=== PATIENT | female | born 1965 | race Caucasian/White ===

== ENCOUNTER 2018-01-16 06:02 | Day surgery (SDC) | payer OTHER ==
[2018-01-10 13:54] VITALS: BMI 26.4
[2018-01-16] MEDS ORDERED: oxyCODONE HCL 10 MG SUSTAINED ACTING TABLET PO ONE (07:26)
[2018-01-16] MEDS ORDERED: MIDAZOLAM HCL 2 MG/2 ML SINGLE DOSE VIAL ONE ×2 (07:31→10:02)
[2018-01-16] MEDS ORDERED: BUPIVACAINE HCL/PF (5 MG/ML) 30 ML VIAL IJ ONE (07:31)
[2018-01-16] MEDS ORDERED: DEXAMETHASONE SOD PHOSPHATE/PF 10 MG/ML SDV ONE (07:31)
[2018-01-16] MEDS ORDERED: DEXAMETHASONE SOD PHOSPHATE 4 MG/1 ML VIAL ONE (07:36)
[2018-01-16] MEDS ORDERED: KETOROLAC TROMETHAMINE 30 MG/1 ML VIAL ONE (07:36)
[2018-01-16] MEDS ORDERED: ONDANSETRON 4 MG/2 ML VIAL ONE (07:36)
[2018-01-16] MEDS ORDERED: ceFAZolin SODIUM 1 GM VIAL ONE (07:36)
[2018-01-16] MEDS ORDERED: BUPIVACAINE HCL/PF 0.5% (5MG/ML) 10 ML VIAL ONE (07:37)
[2018-01-16] MEDS ORDERED: THROMBIN (BOVINE) 5,000 UNIT VIAL TP ONE ×2 (07:38→09:14)
[2018-01-16] MEDS ORDERED: LIDOCAINE 1%/EPI 1:100000 (20 ML MULTI DOSE VIAL) ONE ×2 (07:39→10:17)
[2018-01-16] MEDS ORDERED: methylPREDNISolone ACET (DEPO) 40 MG/1 ML VIAL ONE (07:54)
--- NOTE | 2018-01-16 08:20 | HP ---
History & Physical Update - History History: No Change - Physical Physical: No Change - Assessment Assessment: No Change - Plan Plan: No Change
[2018-01-16] MEDS ORDERED: oxyCODONE HCL 10 MG SUSTAINED ACTING TABLET ONE (08:35)
[2018-01-16] MEDS ORDERED: LIDOCAINE 1%/EPI 1:100000 (20 ML MULTI DOSE VIAL) IJ ONE ×2 (09:15→10:18)
--- NOTE | 2018-01-16 10:41 | OP ---
Operative Note - Note: Operative Date: 01/16/18 Pre-Operative Diagnosis: spinal stenosis Operation: laminectomy of L2-L3, microdisectomy, with repair of dural tear with duragen patch/duraseal Surgeon: Hao Bryant Telecommunications Repairer: Elizabeth Kessler Anesthesiologist/THERAPIST PHYS: Lenny Russell Anesthesia: Spinal Estimated Blood Loss (mls): 30 Fluid Volume Replaced (mls): 1,000 Operative Report Dictated: Yes
[2018-01-16] MEDS ORDERED: ONDANSETRON 4 MG/2 ML VIAL IVPUSH PRN (11:13)
[2018-01-16] MEDS ORDERED: oxyCODONE HCL 5 MG TABLET PO PRN (11:13)
[2018-01-16] MEDS ORDERED: LACTATED RINGERS SOLUTION 1,000 ML IV SCH (11:15)
--- NOTE | 2018-01-16 11:38 | OP ---
DATE OF OPERATION: 01/16/2018 PREOPERATIVE DIAGNOSIS: Spinal stenosis, L2-3. POSTOPERATIVE DIAGNOSIS: Spinal stenosis, L2-3. PROCEDURE PERFORMED: Laminectomy, L2-3. SURGEON: Hao Bryant MD PSYCHIATRY RESIDENT: PARADISE Jin ESTIMATED BLOOD LOSS: 50 mL INTRAVENOUS FLUIDS: Per Anesthesia. ANESTHESIA: Spinal/TLIP. COMPLICATIONS: None. DISPOSITION: Patient brought to the PACU in stable condition. INDICATIONS FOR SURGERY: The patient is a 52-year-old female who has been suffering from pain from her back down her leg. X-rays and MRI were completed which noted that she had spinal stenosis at L2-3 secondary to a herniated disk. She had gone through an exhaustive course of treatment for this, which included medications, physical therapy as well as injections. Unfortunately, her pain continued to persist despite all this. At this point, risks, benefits, and alternatives were discussed, and the patient consented to surgery. DESCRIPTION OF PROCEDURE: Patient was brought to the operating room by the Anesthesia staff. After appropriate patient identification was performed, spinal anesthesia and TLIP block were given. Patient was able to position herself prone onto the OR table with all areas of bony prominences well padded at this time. Two needles were placed into her back to ludivina off the L2-3 disk space. X-ray was taken to confirm this as correct. Halbur were removed, and 10 mL of lidocaine with epinephrine were injected in her back at this time. Her back was prepped and draped in a sterile manner. At this point, a timeout was completed. An incision was made from the top of L2 down to the bottom of L3. Dissection was carried down to the fascia. Fascia was split open at this time. Appropriate retractors were then placed in. A spinal needle was placed onto the L2 lamina to ludivina off the L2-3 level. An x-ray was taken to confirm this as correct. The needle was removed, and the microscope was brought in. The interspinous ligament at L2-3 was removed. Portions of the L2-3 spinous processes were removed. Portions of the lamina were removed. The flavum was identified, was removed. A complete decompression was performed such that the L3 nerve root was well decompressed. The disk herniation was relieved at this time. All bleeding was well controlled. Steroid was placed over the nerve root. FloSeal was placed over that. The fascia was closed with a No. 1 Vicryl suture. Subcutaneous tissues were closed with 2-0 Vicryl suture. Skin was closed with 3 -0 Monocryl suture. Dermabond was applied. Steri-Strips were applied. A sterile dressing was applied. Patient was placed supine on the OR bed and brought to the PACU in stable condition. Leroy QUEVEDO/[id number] MTDD
[2018-01-16 12:36] VITALS: TEMP 97.8
[2018-01-16 14:24] VITALS: BP 104/60; PULSE 64
--- NOTE | 2018-01-17 10:45 | SURG ---
Surgery Machine Engineer Note Machine Engineer: Elizabeth Kessler PA-C Date of Service: 01/16/18 Diagnosis: spinal stenosis Procedure: laminecotmy of L2-L3 with microdisectomy, repair of dural tear with duragen patch/duraseal I was present for the entirety of the operative procedure. For further detail, please refer to operative report. Visit type - Case Type Case Type: Scheduled Admission - New patient This patient is new to me today: Yes Date on this admission: 01/16/18
--- NOTE | 2018-01-20 14:12 | PATH ---
Surgical Pathology Report Patient Name: LENORA MERAZ [facility]. Rec. #: [id number] /Age/Gender: 1965 (Age: 52) / F Account: [id number] Location: [facility] Taken: 01/16/2018 Received: 01/16/2018 Reported: 01/20/2018 Physicians: Hao Bryant M.D. Specimen(s) Received DISC L2-L3 Clinical History Spinal stenosis Final Diagnosis DISC L2-L3, LAMINECTOMY: CARTILAGE WITH DEGENERATIVE CHANGES. Electronically Signed Candy Parker M.D. Gross Description Received in formalin labeled "disc L2-L3," is a 1.5 x 1.0 x 0.2 cm aggregate of izquierdo fragments of fibrocartilaginous tissue. The specimen is entirely submitted in one cassette. 01/17/201801/17/2018
== END 2018-01-16 14:00 | disposition home or self-care (01) ==
LOC: FASU 06:02
PROVIDERS: ATTEND Orthopaedic Surgery Orthopaedic Surgery of the Spine
PROC: 01NB0ZZ Release Lumbar Nerve, Open Approach (ICD-10-PCS; principal; 2018-01-16 09:14)
DX: M48.061 Spinal stenosis, lumbar region without neurogenic claudication (principal)
CPT/HCPCS: 72100-TC-FY; 84703; 88304-TC; 94760